=== PATIENT | female | born 1980 | race African-American/Black ===

== ENCOUNTER 2018-11-05 20:17 | Inpatient (IN) | payer MEDICAID, OTHER ==
[~2018-11-05] VITALS: Ht 162.6 cm; Wt 84.2 kg
[2018-11-05 23:24] LABS: EOSINOPHILS % (AUTO) 0.5 % (1.0-6.0); HEMATOCRIT 34.3 % (36-46); HEMOGLOBIN 11.1 g/dL (12.0-16.0); LYMPHOCYTES # (AUTO) 1.8 K/uL (1.0-4.8); MEAN CORPUSCULAR HEMOGLOBIN 28.3 pg (26.0-34.0); MEAN CORPUSCULAR HGB CONC 32.3 G/dL (31.0-37.0); MEAN CORPUSCULAR VOLUME 88 fL (80-100); MONOCYTES # (AUTO) 0.9 K/uL (0.1-1.0); MONOCYTES % (AUTO) 7.8 % (2.0-9.0); NEUTROPHILS # (AUTO) 8.4 K/uL (1.8-7.7); NEUTROPHILS % (AUTO) 74.7 % (40.0-70.0); PLATELET COUNT (AUTO) 243 K/uL (150-450); RED BLOOD CELL COUNT(AUTO) 3.92 MIL/uL (4.00-5.20); RED CELL DISTRIBUTION WIDTH 16.9 % (11.5-14.5)
[2018-11-05 23:49] LABS: ALANINE AMINOTRANSFERASE 17 U/L (12-78); ALBUMIN 3.1 g/dL (3.4-5.0); ALKALINE PHOSPHATASE 85 U/L (46-116); ANION GAP 22 mmol/L (8-16); ASPARTATE AMINOTRANSFERASE 14 U/L (15-37); BILIRUBIN,TOTAL 0.4 mg/dL (0.1-1.0); CARBON DIOXIDE 16 mmol/L (22-29); CHLORIDE 100 mmol/L (98-107); GLUCOSE,RANDOM 131 mg/dL (70-110); HCG,QUANTITATIVE < 1 mIU/mL (0-6); LIPASE 110 U/L (73-393); SODIUM SERUM 138 mmol/L (136-145); TOTAL PROTEIN, SERUM 7.8 g/dL (6.4-8.2); UREA NITROGEN, BLOOD 82 mg/dL (7-18)
[2018-11-06 00:06] LABS: POTASSIUM 6.6 mmol/L (3.5-5.1)
[2018-11-06 00:15] LABS: CALCIUM, TOTAL 5.8 mg/dL (8.8-10.5)
[2018-11-06] MEDS ORDERED: ALBUTEROL SULFATE 5 MG/ML 20 ML NEB SOLN [BULK] NEB ONE (00:15)
[2018-11-06] MEDS ORDERED: INSULIN REGULAR, HUMAN 100 UNITS/ML IVP ONE (00:15)
[2018-11-06] MEDS ORDERED: SODIUM POLYSTYRENE SULFONATE 15 GM/60 ML SUSPENSION BOTTLE PO ONE (00:15)
[2018-11-06] MEDS ORDERED: DEXTROSE 50%-WATER 25 GM/50 ML SYRINGE IVP ONE (00:15)
[2018-11-06 00:16] LABS: B-TYPE NATRIURETIC PEPTIDE 1100 pg/mL (0-100)
[2018-11-06 00:19] LABS: GLOMERULAR FILTR. RATE CALC 2 mL/min (>60)
[2018-11-06 00:22] LABS: CREATININE 25.26 mg/dL (0.60-1.30)
[2018-11-06] MEDS ORDERED: 0.9% SODIUM CHLORIDE 10 ML SYRINGE IVP PRN (01:45)
[2018-11-06] MEDS ORDERED: CALCIUM GLUCONATE 0.465 MEQ/ML 10 ML VIAL IVP ONE (01:45)
[2018-11-06] MEDS ORDERED: HydrALAZINE HCL 20 MG/ML VIAL IVP ONE ×2 (02:00→19:45)
[2018-11-06] MEDS ORDERED: MORPHINE SULFATE 4 MG/ML SYRINGE IVP ONE (02:00)
[2018-11-06] MEDS ORDERED: SODIUM CHLORIDE 0.9% 50 ML ONE (02:04)
[2018-11-06] MEDS: ONDANSETRON HCL 4 MG/2 ML VIAL IVP PRN ×2 (02:05→12:27)
[2018-11-06 03:27] LABS: ALBUMIN 2.7 g/dL (3.4-5.0); BILIRUBIN,TOTAL 0.4 mg/dL (0.1-1.0); CALCIUM, TOTAL 6.6 mg/dL (8.8-10.5); POTASSIUM 4.1 mmol/L (3.5-5.1); TOTAL PROTEIN, SERUM 7.1 g/dL (6.4-8.2)
[2018-11-06 03:29] VITALS: BP 103/77
[2018-11-06 03:29] LABS: CREATININE 26.35 mg/dL (0.60-1.30)
[2018-11-06] MEDS: MORPHINE SULFATE 4 MG/ML SYRINGE IVP PRN ×3 (06:50→20:27)
[2018-11-06 07:58] VITALS: BP 125/58
[2018-11-06] MEDS ORDERED: MAGNESIUM HYDROXIDE SUSPENSION 30 ML UDCUP PO PRN (09:00)
[2018-11-06] MEDS ORDERED: BISACODYL 10 MG RECTAL RECTAL SUPPOSITORY PR PRN (09:00)
[2018-11-06] MEDS ORDERED: ZOLPIDEM TARTRATE 5 MG TABLET PO PRN (09:00)
[2018-11-06] MEDS: PANTOPRAZOLE SODIUM 40 MG DR TABLET PO SCH ×2 (09:00→12:28)
[2018-11-06] MEDS: DOCUSATE SODIUM 100 MG CAPSULE PO SCH ×2 (09:00→20:03)
[2018-11-06 11:55] VITALS: BP 158/89
[2018-11-06] MEDS ORDERED: ALTEPLASE 2 MG/VIAL IVCATH ONE ×2 (15:00)
[2018-11-06] MEDS: HEPARIN SODIUM,PORCINE 5,000 UNITS/ML VIAL SQ SCH (16:11)
[2018-11-06 16:36] VITALS: BP 193/80
[2018-11-06] MEDS ORDERED: CloNIDine HCL 0.1 MG TABLET PO PRN (18:15)
[2018-11-06] MEDS ORDERED: HydrALAZINE HCL 50 MG TABLET PO ONE (19:45)
[2018-11-06] MEDS: HydrALAZINE HCL 50 MG TABLET PO SCH (20:02)
[2018-11-06 20:03] VITALS: BP 186/85
[2018-11-07] VITALS (11 sets, daily range): BP systolic 132–216; BP diastolic 55–129
[2018-11-07] MEDS: HEPARIN SODIUM,PORCINE 5,000 UNITS/ML VIAL SQ SCH ×3 (00:36→16:00)
[2018-11-07] MEDS: MORPHINE SULFATE 4 MG/ML SYRINGE IVP PRN ×4 (00:37→21:56)
[2018-11-07] MEDS: ONDANSETRON HCL 4 MG/2 ML VIAL IVP PRN ×3 (03:02→15:55)
[2018-11-07 07:15] LABS: BASOPHILS % (AUTO) 0.8 % (0.0-2.0); EOSINOPHILS % (AUTO) 2.5 % (1.0-6.0); HEMATOCRIT 33.5 % (36-46); HEMOGLOBIN 11.1 g/dL (12.0-16.0); LYMPHOCYTES % (AUTO) 11.6 % (22.0-44.0); MEAN CORPUSCULAR HGB CONC 33.1 G/dL (31.0-37.0); MEAN CORPUSCULAR VOLUME 88 fL (80-100); MONOCYTES % (AUTO) 11.6 % (2.0-9.0); NEUTROPHILS # (AUTO) 6.3 K/uL (1.8-7.7); NEUTROPHILS % (AUTO) 73.5 % (40.0-70.0); PLATELET COUNT (AUTO) 215 K/uL (150-450); RED BLOOD CELL COUNT(AUTO) 3.83 MIL/uL (4.00-5.20); RED CELL DISTRIBUTION WIDTH 16.9 % (11.5-14.5)
[2018-11-07 07:23] LABS: ALBUMIN 2.8 g/dL (3.4-5.0); BILIRUBIN,TOTAL 0.4 mg/dL (0.1-1.0); CALCIUM, TOTAL 7.1 mg/dL (8.8-10.5); CREATININE 15.78 mg/dL (0.60-1.30); MAGNESIUM 1.7 mg/dL (1.80-2.40); PHOSPHORUS 7.7 mg/dL (2.5-4.9); POTASSIUM 4.6 mmol/L (3.5-5.1); TOTAL PROTEIN, SERUM 7.3 g/dL (6.4-8.2)
[2018-11-07 08:51] LABS: PLATELET MORPHOLOGY COMMENT LARGE PLTS PRESENT
[2018-11-07] MEDS: PANTOPRAZOLE SODIUM 40 MG DR TABLET PO SCH (08:54)
[2018-11-07] MEDS: DOCUSATE SODIUM 100 MG CAPSULE PO SCH ×2 (08:54→20:26)
[2018-11-07] MEDS: HydrALAZINE HCL 50 MG TABLET PO SCH ×4 (08:55→20:26)
[2018-11-07] MEDS ORDERED: MANNITOL 25%-12.5 GM/50 ML VIAL IVP PRN (15:30)
[2018-11-07] MEDS ORDERED: HEPARIN SODIUM,PORCINE 1,000 UNITS/ML VIAL IVP ONE ×2 (15:30)
[2018-11-07] MEDS ORDERED: HydrALAZINE HCL 20 MG/ML VIAL ONE (16:25)
[2018-11-07] MEDS ORDERED: HydrALAZINE HCL 20 MG/ML VIAL IVP PRN ×2 (16:30→21:15)
[2018-11-07] MEDS: PROCHLORPERAZINE MALEATE 10 MG TABLET PO PRN (19:09)
[2018-11-08] MEDS: HEPARIN SODIUM,PORCINE 5,000 UNITS/ML VIAL SQ SCH ×2 (00:30→08:40)
[2018-11-08] MEDS: MORPHINE SULFATE 4 MG/ML SYRINGE IVP PRN ×2 (04:14→08:47)
[2018-11-08] MEDS: PROCHLORPERAZINE MALEATE 10 MG TABLET PO PRN ×2 (04:19→08:40)
[2018-11-08 04:41] VITALS: BP 193/93
[2018-11-08 06:48] LABS: BASOPHILS % (AUTO) 0.7 % (0.0-2.0); EOSINOPHILS % (AUTO) 0.1 % (1.0-6.0); HEMATOCRIT 37.8 % (36-46); HEMOGLOBIN 12.6 g/dL (12.0-16.0); LYMPHOCYTES # (AUTO) 1.3 K/uL (1.0-4.8); LYMPHOCYTES % (AUTO) 14.2 % (22.0-44.0); MEAN CORPUSCULAR HEMOGLOBIN 29.3 pg (26.0-34.0); MEAN CORPUSCULAR HGB CONC 33.2 G/dL (31.0-37.0); MEAN CORPUSCULAR VOLUME 88 fL (80-100); MONOCYTES # (AUTO) 0.9 K/uL (0.1-1.0); MONOCYTES % (AUTO) 10.2 % (2.0-9.0); NEUTROPHILS # (AUTO) 6.8 K/uL (1.8-7.7); NEUTROPHILS % (AUTO) 74.8 % (40.0-70.0); PLATELET COUNT (AUTO) 248 K/uL (150-450); RED BLOOD CELL COUNT(AUTO) 4.29 MIL/uL (4.00-5.20); RED CELL DISTRIBUTION WIDTH 17.1 % (11.5-14.5)
[2018-11-08 06:51] LABS: PLATELET MORPHOLOGY COMMENT LARGE PLTS PRESENT
[2018-11-08 07:01] VITALS: BP 149/71
[2018-11-08 07:28] LABS: CALCIUM, TOTAL 8.5 mg/dL (8.8-10.5); CREATININE 11.09 mg/dL (0.60-1.30); POTASSIUM 4.9 mmol/L (3.5-5.1)
[2018-11-08] MEDS: DOCUSATE SODIUM 100 MG CAPSULE PO SCH (08:36)
[2018-11-08] MEDS: PANTOPRAZOLE SODIUM 40 MG DR TABLET PO SCH (08:40)
[2018-11-08] MEDS: HydrALAZINE HCL 50 MG TABLET PO SCH ×2 (08:41→16:00)
[2018-11-08 11:42] VITALS: BP 147/85
[2018-11-08] MEDS ORDERED: AmLODIPine BESYLATE 5 MG TABLET PO SCH (12:00)
[2018-11-08 15:41] VITALS: BP 133/90
[2018-11-08] MEDS ORDERED: AMLO-511 PO (15:55)
[2018-11-08] MEDS ORDERED: HYDR-2924 PO (15:56)
[2018-11-08] MEDS ORDERED: HEPARIN SODIUM,PORCINE 1,000 UNITS/ML VIAL IVP ONE ×2 (17:24→17:30)
== END 2018-11-08 18:05 | disposition home or self-care (01) | DRG 425 ==
LOC: EMS 20:18 → EEVIPCON 20:18 → 5N 11-06 00:01
PROVIDERS: ADMIT Internal Medicine; ATTEND Internal Medicine
PROC: 5A1D70Z Performance of Urinary Filtration, Intermittent, Less than 6 Hours Per Day (ICD-10-PCS; principal; 2018-11-06)
PROC: 5A1D70Z Performance of Urinary Filtration, Intermittent, Less than 6 Hours Per Day (ICD-10-PCS; 2018-11-07)
DX: E87.5 Hyperkalemia (principal); I13.2 Hypertensive heart and chronic kidney disease with heart failure and with stage 5 chronic kidney disease, or end stage renal disease; E83.51 Hypocalcemia; Z89.611 Acquired absence of right leg above knee; N18.6 End stage renal disease; E88.09 Other disorders of plasma-protein metabolism, not elsewhere classified; I50.31 Acute diastolic (congestive) heart failure; Z83.3 Family history of diabetes mellitus; D63.1 Anemia in chronic kidney disease; Z88.1 Allergy status to other antibiotic agents; Z88.5 Allergy status to narcotic agent; Z88.8 Allergy status to other drugs, medicaments and biological substances; Z99.2 Dependence on renal dialysis; Z91.19 Patient's noncompliance with other medical treatment and regimen
CPT/HCPCS: 74176; 83735; 83970; 84100; 87081; 87340; 93005; 96374; 96375; 99291; G0378; J0360; J0610; J1644; J1815; J2270; J2405; J2997; J7050